=== PATIENT | female | born 1955 | race Caucasian/White ===

== ENCOUNTER 2019-06-15 17:10 | Emergency (ER) | payer OTHER ==
[~2019-06-15] VITALS: Ht 162.6 cm; Wt 99.8 kg
[2019-06-15] MEDS ORDERED: NAPROSYN500 M1 PO (18:45)
[2019-06-15] MEDS ORDERED: HYDRALAZINE 2525 MG PO (18:45)
[2019-06-15] MEDS ORDERED: CYMBALTA60 MG PO (18:45)
[2019-06-15] MEDS ORDERED: MOBIC7.5 MG PO (19:21)
[2019-06-15 19:38] VITALS: BP 158/97
== END 2019-06-15 19:38 | disposition home or self-care (01) ==
LOC: M.ERS 17:10
DX: S89.81XA Other specified injuries of right lower leg, initial encounter (principal); I10 Essential (primary) hypertension; W01.0XXA Fall on same level from slipping, tripping and stumbling without subsequent striking against object, initial encounter; Y93.89 Activity, other specified; Y92.89 Other specified places as the place of occurrence of the external cause; Y99.8 Other external cause status